=== PATIENT | female | born 1970 | race Caucasian/White ===

== ENCOUNTER → 2023-09-14 10:22 | Outpatient (REF) | payer OTHER, SELFPAY | LOC: HWRAD 10:22 | PROVIDERS: ATTENDING PHYSICIAN Podiatrist Foot & Ankle Surgery; FAMILY PHYSICIAN Nurse Practitioner | DX: M85.89 Other specified disorders of bone density and structure, multiple sites (principal) | CPT/HCPCS: 77080 ==

== ENCOUNTER → 2023-12-24 09:48 | Outpatient (REF) | payer OTHER, SELFPAY | LOC: HWRAD 09:48 | PROVIDERS: ATTENDING PHYSICIAN Obstetrics & Gynecology; FAMILY PHYSICIAN Nurse Practitioner | DX: N95.0 Postmenopausal bleeding (principal) | CPT/HCPCS: 76830; 76856 ==

== ENCOUNTER 2024-02-01 06:28 | Day surgery (SDC) | payer OTHER, SELFPAY ==
[2024-01-14 09:09] LABS: Blood Urea Nitrogen 16 mg/dl (7-17); Calcium 9.5 mg/dl (8.4-10.2); Carbon Dioxide 25 mmol/L (22-30); Chloride 106 mmol/L (98-107); Glucose 133 mg/dl (70-99); Potassium 4.4 mmol/L (3.5-5.1); Sodium 139 mmol/L (135-145); eGFR > 60.00
[2024-01-15 10:54] VITALS: BMI 33.3
[2024-02-01] VITALS (8 sets, daily range): BP systolic 132–155; BP diastolic 77–101; BMI 32.4
[2024-02-01 11:11] LABS: Glucose - Point of Care 116 mg/dl (70-99)
[2024-02-01] MEDS: NORMOSOL-R 1000 IV ×2 (11:18→15:34)
[2024-02-01 14:36] LABS: Glucose - Point of Care 92 mg/dl (70-99)
== END 2024-02-01 16:39 | disposition home or self-care (01) ==
LOC: SDS 06:28
PROVIDERS: ATTENDING PHYSICIAN Obstetrics & Gynecology; FAMILY PHYSICIAN Nurse Practitioner
DX: N95.0 Postmenopausal bleeding (principal); N88.2 Stricture and stenosis of cervix uteri
CPT/HCPCS: 58558; 88305; 71046; 76998; 80048; 82962; 93005

== ENCOUNTER → 2024-02-21 13:56 | Outpatient (REF) | payer OTHER, SELFPAY | LOC: HWRAD 13:56 | PROVIDERS: ATTENDING PHYSICIAN Nurse Practitioner | DX: R10.31 Right lower quadrant pain (principal) | CPT/HCPCS: 74177; Q9967 ==

== ENCOUNTER → 2024-03-19 12:53 | Outpatient (REF) | payer OTHER, SELFPAY | LOC: MRI 3T 12:53 | PROVIDERS: ATTENDING PHYSICIAN Obstetrics & Gynecology; FAMILY PHYSICIAN Nurse Practitioner | DX: N95.0 Postmenopausal bleeding (principal) | CPT/HCPCS: 72197; A9575 ==

== ENCOUNTER 2024-07-01 06:54 | Day surgery (SDC) | payer OTHER, SELFPAY ==
[2024-06-25 09:17] LABS: % Basophils 0.5 % (0-2); % Eosinophils 2.7 % (0-6); % Immature Granulocytes 0.2 % (0-0.5); % Lymphocytes 35.6 % (20.5-51.1); % Monocytes 8.5 % (1.7-9.3); % Neutrophils 52.5 % (42.2-75.2); Absolute Eosinophils 0.2 10^3/uL (0-0.7); Absolute Monocytes 0.5 10^3/uL (0.1-0.6); Absolute Neutrophils 2.9 10^3/uL (1.4-6.5); Hematocrit 41.9 % (37.0-47.0); Hemoglobin 14.3 g/dL (12.0-16.0); Mean Corp Hgb Conc. 34.1 g/dL (33.0-37.0); Mean Corpuscular Hgb 29.5 pg (27.0-31.0); Mean Corpuscular Volume 86.6 fL (81.0-99.0); Mean Platelet Volume 10.8 fL (7.4-10.4); Nucleated Red Blood Cells % 0 %; Platelet Count 245 10^3/uL (130-400); Red Blood Cell Count 4.84 10^6/uL (4.20-5.40); Red Cell Dist. Width 12.1 % (11.5-14.5); White Blood Cell Count 5.5 10^3/uL (4.8-10.8)
[2024-06-25 09:26] LABS: ALT (SGPT) 41 U/L (0-35); AST (SGOT) 28 U/L (14-36); Albumin 4.7 g/dl (3.5-5.0); Alkaline Phosphatase 82 U/L (38-126); Blood Urea Nitrogen 20 mg/dl (7-17); Calcium 9.2 mg/dl (8.4-10.2); Carbon Dioxide 29 mmol/L (22-30); Chloride 100 mmol/L (98-107); Glucose 127 mg/dl (70-99); Potassium 4.6 mmol/L (3.5-5.1); Sodium 139 mmol/L (135-145); Total Bilirubin 0.4 mg/dl (0.2-1.3); Total Protein 7.7 g/dl (6.3-8.2); eGFR > 60.00
[2024-06-25 13:34] VITALS: BMI 33.1
--- NOTE | 2024-06-30 08:17 | W.CON.GYNONC ---
Chief Complaint
-
NA
History of Present Illness
53 yo G3, P3 white female, last menstrual period November [address] Hallman with postmenopausal bleeding. There was
an episode of vaginal bleeding that reminded her of a period.
Ultrasound of pelvis December 24, 2023 shows uterus to be 12 x 4 x 5 cm, endometrium is echogenic measuring 10 mm. Right ovary is 1.8
cm, left ovary has a cyst 2.1 x 2.9 x 4 cm which is simple. There is no fluid in the pelvis.
She was taken to the operating room February 01, 2024 for exam under anesthesia endometrial biopsy failed hysteroscopy and D&C.
Specimen is nondiagnostic, abundant mucus and red blood cells are seen no endometrium is seen on histologic sections.
An MRI was done of the pelvis March 19, 2024 which shows uterus to be anteverted, endometrium is 3 mm, junctional zone has
few tiny simple cyst in the fundal region with no convincing evidence for adenomyosis. Cervix is unremarkable. Left ovary has a
minimally complex cyst measuring 4.5 cm with a thin incomplete internal septation but no mural nodularity or enhancement. This is
felt to be benign. Bladder is unremarkable and bowel is unremarkable. Right ovary is normal
�She�is�ready�to�move�forward�with�hysterectomy,�previously�was�going�to�wait�until�her�summer�break�but�would�like�to proceed�after�the�new�year.
Medications include lisinopril, sertraline, Januvia, crampy Paxil
Past medical history is prediabetes anxiety and hypertension
Past surgical history is significant for D&C, C�section x 3, no history of blood transfusion
Family history is negative for gynecologic
Social history significant for denies tobacco or drug or marijuana use. She uses alcohol rarely
Social History
Patient denies ever using tobacco.
Social use of alcohol.
Denies any illicit drug use.
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
Patient has not had any occupational exposure.
Marital Status: Patient is
Gynecological History
Age at Menarche 12 years. Age at menopause: 52 years. Patient reports 3 pregnancies. Her age at first full term was 28
years.
Medical History
Allergies
Allergies reflect when allergies were last updated in [facility].
No Known Allergies Allergy (Verified 06/26/24 16:54)
Physical Exam
Physical Exam
Physical Exam
General: Well developed, well nourished patient. In no acute distress.
Head: Atraumatic and normocephalic.
Neck: No thyromegaly. No cervical lymphadenopathy.
Lungs: Clear to auscultation. Good air movement bilaterally.
Cardiac: Regular rate. Regular rhythm. No murmurs appreciated.
Abdomen: Abdomen is soft. Non�tender to palpation. Non�distended.
Extremities: No edema.
Hematologic/Lymphatic: No palpable lymphadenopathy.
Musculoskeletal: Normal range of motion. Strength and Tone are normal.
Skin:Non�jaundiced. No petechia. No purpura.
Results
-
06/25/24 06:48
06/25/24 06:48
Impression / Plan
-
I spoke with the patient that workup of postmenopausal bleeding includes evaluation of the entire genital tract, Pap smear,
endometrial biopsy and pelvic ultrasound. In her particular situation given the initial thickening of the ultrasound for endometrial
evaluation there was concern about polyp versus hyperplasia versus endometrial cancer. She does have risk factors for endometrial
cancer including obesity hypertension and prediabetes
Her MRI does show that the endometrium is indeed only 3 mm, most likely she just had a physiologic episode of bleeding but given
the fact that her endometrium cannot be sampled I do eventually recommend the patient should undergo total hysterectomy for
definitive management.
Additionally she has a complex appearing ovary mass on the left side, CA125 will be ordered, the level of complexity is rather
minimal and it is in near complete septation. There does not appear to be any significant change from December to March and the cyst.
Nevertheless in a postmenopausal woman this is an abnormal finding and may be an indication for surgical removal
Overall I recommended that she returns back to the office in 4 to 6 weeks to discuss the ultimate plan. I personally recommended
that she needs to consider robotic assisted total laparoscopic hysterectomy with at least left salpingo�oophorectomy possible
bilateral salpingo�oophorectomy for definitive management. 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
to postpone this until the end of the year so she does not miss work. She is willing to do what ever is necessary. It is reassuring to
see that she has not had any further episodes of bleeding and that her MRI evaluation of endometrium is very reassuring and
benign.
Reviewed labs and pap with patient and discussed follow up with primary about low TSH value.
she would like to move forward with Robotic Assisted Total Laparoscopic hysterectomy with BSO.
risks and benefits reviewed with patient and consent was signed.
[2024-07-01] VITALS (8 sets, daily range): BP systolic 118–148; BP diastolic 76–94; BMI 33.1
[2024-07-01] MEDS: NORMOSOL-R/PLASMALYTE-A 1000 IV (13:17)
[2024-07-01 13:21] LABS: Glucose - Point of Care 107 mg/dl (70-99)
[2024-07-01] MEDS: CELEBREX 200 MG PO (13:27)
[2024-07-01] MEDS: TYLENOL 1000 MG PO (13:27)
[2024-07-01] MEDS: NEURONTIN 300 MG PO (13:27)
[2024-07-01] MEDS: HEPARIN 5000 UNITS SC (15:14)
[2024-07-01] MEDS: DILAUDID 0.25 MG IV ×2 (18:54→19:22)
[2024-07-01] MEDS: DILAUDID 0.5 MG IV (19:32)
[2024-07-01] MEDS: ROXICODONE 5 MG PO (19:53)
[2024-07-01] MEDS: MOTRIN 600 MG PO (20:02)
== END 2024-07-01 20:45 | disposition home or self-care (01) ==
LOC: SDS 06:54
PROVIDERS: ATTENDING PHYSICIAN Obstetrics & Gynecology Gynecologic Oncology
DX: N80.03 Adenomyosis of the uterus (principal); N83.201 Unspecified ovarian cyst, right side; N73.6 Female pelvic peritoneal adhesions (postinfective); N95.0 Postmenopausal bleeding
CPT/HCPCS: 58571; 88307; 36415; 80053; 82962; 85025; 86850; 86900; 86901; 88112; 93005

== ENCOUNTER → 2024-07-21 12:54 | Outpatient (REF) | payer OTHER, SELFPAY | LOC: HWWDC 12:54 | PROVIDERS: ATTENDING PHYSICIAN Obstetrics & Gynecology | DX: Z12.31 Encounter for screening mammogram for malignant neoplasm of breast (principal) | CPT/HCPCS: 77063; 77067 ==

== ENCOUNTER 2025-01-28 15:33 | Emergency (ER) | payer OTHER, SELFPAY ==
[2025-01-28 15:47] VITALS: BP 121/83
[2025-01-28 18:14] VITALS: BP 138/90
[2025-01-28] MEDS: TYLENOL 650 MG PO (18:24)
[2025-01-28 18:25] LABS: Hematocrit 42.5 % (37.0-47.0); Hemoglobin 14.4 g/dL (12.0-16.0); Mean Corp Hgb Conc. 33.9 g/dL (33.0-37.0); Mean Corpuscular Volume 85.5 fL (81.0-99.0); Platelet Count 273 10^3/uL (130-400); Red Cell Dist. Width 12.4 % (11.5-14.5)
[2025-01-28 18:26] VITALS: BMI 31.8
--- NOTE | 2025-01-28 18:37 | ED.GENMED ---
History of Present Illness
General
Chief Complaint: Head Injury
Source: patient, records and spouse
Exam Limitations: none
Time Seen by Provider: 01/28/25 18:07
Nursing documentation reviewed up to this point in time: agreed with
History of Present Illness
History of Present Illness:
54-year-old female referred from urgent care due to dizziness after a fall she got up to use the ladies room middle the night apparently fell hit her head does remember all the details no alcohol, she is diabetic she has had a hysterectomy, felt
well before she went to bed since the fall she has had some dizziness worse with head movement of some neck pain, wound was sutured at urgent care, no chest pain or shortness of breath
Past History
Past History
ED Past Medical History: HTN, Psychiatric (Anxiety) and Other (Restless leg syndrome)
ED Past Surgical History: and Gynecological
Social History
Tobacco: Non-smoker
Drug: None
Personal:
Living: with family
Employment: Employed
Family History
Family History: Other
Phy Exam
Physical Exam
Physical Exam:
Physical Exam
General: no apparent distress, not acutely ill
Neck: Mild paraspinal tenderness in the cervical spine sutured laceration of the left presybeterian some ecchymosis on the left presybeterian
Heart: s1/s2 regular rate and rhythm, no murmur. equal radial pulses.
Lungs: no acute respiratory distress.
Neuro: alert and oriented. no focal neurological deficits
Skin: no rash
Psychiatric: well kept. interactive and cooperative
Extremities: no edema.
Course
Orders/Labs/Results
Orders:
Orders
01/28/25 18:07
CT Head W/o Iv Contrast Urgent
Comment:
Reason For Exam: trauma
01/28/25 18:13
Electrocardiogram (*1) Urgent
Reason for Study: Other
Other Reason for Exam: trauma
CT Cervical Spine W/o Iv Contr Urgent
Comment:
Reason For Exam: fall
Cardiac Monitoring- Treatment ONCE
EKG- Treatment ONCE
Acetaminophen [Tylenol] 650 mg PO NOW STA
01/28/25 18:20
Complete Blood Count/No Diff Urgent
Comprehensive Metabolic Panel Urgent
01/28/25 18:20
Vital Signs
Initial and Last Documented VS:
Initial Vital Signs
Temp Pulse Resp BP Pulse Ox
98.7 F 100 16 121/83 98
01/28/25 15:47 01/28/25 15:47 01/28/25 15:47 01/28/25 15:47 01/28/25 15:47
Last Documented Vital Signs
Temp Pulse Resp BP Pulse Ox
98.7 F 100 16 138/90 98
01/28/25 15:47 01/28/25 15:47 01/28/25 15:47 01/28/25 18:14 01/28/25 18:38
MDM/Problems Addressed
Differential Diagnosis Includes:
Syncope, arrhythmia electrolyte abnormality closed head injury already has a sutured laceration
MDM/Problems Addressed:
Fall, head trauma
Chronic conditions affecting care: DM
Acute Exacerbation and/or Progression of Chronic Illness: DM
*Radiology
Radiology exam reviewed: radiology read reviewed
*Pulse Oximetry
SaO2: 98
Oxygen Mode of Delivery: Room air
Patient hypoxic: no
*EKG
Interpreted by ED Provider?: Yes
Interpretation: normal
Comparison EKG: no comparison EKG present
Heart Rate: 78
Rate: normal
Rhythm: sinus
Ischemia: no ischemia
*In Flight Refueling Operator Interpretation
Rate: normal
Heart Rate: 78
Rhythm: sinus
*Critical Care Note
Total Time (30-74mins, 75-104mins- exclusive of procedures): Not Applicable
ED Attending Note
-
Portions of this chart may have been created with voice recognition software.� Occasional wrong word or��sound alike� substitutions may have occurred due to the inherent limitations of voice recognition software.
Discharge Plan
Departure
Prescriptions:
No Action
sertraline 100 mg Tablet
100 mg PO DAILY
lisinopril 10 mg Tablet
10 mg PO DAILY
pramipexole 0.125 mg Tablet
0.125 mg PO QIDPRN PRN (Reason: restless legs)
Rx Instructions:
Pt takes pramipexole at 1500
Januvia
100 mg PO DAILY
Patient Comments:
Patient states that this mediction will no longer be covered by insurance so MD is stopping this med and starting patient on new med but it did not start yet.
Interventions
Interventions:
*Risk Screen - Suicide Last Done: 01/28/25 15:47
*General Assessment Last Done: 01/28/25 18:20
*Neglect/Abuse Screening Last Done: 01/28/25 15:47
*ED- Fall Risk Assessment Last Done: 01/28/25 18:20
*ED COVID-19 Vaccine History Last Done: 01/28/25 18:20
ED- Neurological Assessment Last Done: 01/28/25 18:20
ED-Skin Assessment Last Done: 01/28/25 18:20
Discharge Date and Time
Print Language: [id number]
[2025-01-28 18:47] LABS: ALT (SGPT) 22 U/L (0-35); AST (SGOT) 20 U/L (14-36); Albumin 4.5 g/dl (3.5-5.0); Alkaline Phosphatase 93 U/L (38-126); Blood Urea Nitrogen 15 mg/dl (7-17); Calcium 9.2 mg/dl (8.4-10.2); Carbon Dioxide 28 mmol/L (22-30); Chloride 105 mmol/L (98-107); Estimated Creatinine Clearance 107 ml/min; Glucose 131 mg/dl (70-99); Potassium 4.1 mmol/L (3.5-5.1); Sodium 141 mmol/L (135-145); Total Protein 7.4 g/dl (6.3-8.2); eGFR > 60.00
[2025-01-28 19:00] VITALS: BP 115/80
[2025-01-28 20:00] VITALS: BP 112/73
[2025-01-28 20:50] VITALS: BP 131/88
[2025-01-28 21:00] VITALS: BP 129/80
== END 2025-01-28 21:45 | disposition home or self-care (01) ==
LOC: EMR 15:33
PROVIDERS: EMERGENCY PHYSICIAN Emergency Medicine
DX: S09.90XA Unspecified injury of head, initial encounter (principal); W19.XXXA Unspecified fall, initial encounter; E11.9 Type 2 diabetes mellitus without complications; F41.9 Anxiety disorder, unspecified; G25.81 Restless legs syndrome; I10 Essential (primary) hypertension
CPT/HCPCS: 99284; 70450; 72125; 80053; 85027; 93005